=== PATIENT | male | born 1985 | race Two or more races ===

== ENCOUNTER 2024-11-27 14:20 | Outpatient (CLI) | payer BC ==
[2024-11-29 03:07] LABS: Chlamydia Trachomatis, NAA Negative (Negative); Neisseria gonorrhoeae, NAA Negative (Negative)
== END 2024-11-27 17:54 | disposition home or self-care (01) ==
LOC: LAB 14:20
DX: Z11.3 Encounter for screening for infections with a predominantly sexual mode of transmission (principal); Z11.1 Encounter for screening for respiratory tuberculosis; Z23 Encounter for immunization
CPT/HCPCS: 36415; 86780